=== PATIENT | male | born 1940 | race African-American/Black ===

== ENCOUNTER 2020-08-12 07:55 | Day surgery (SDC) | payer MEDICARE ==
[~2020-08-12] VITALS: Ht 172.7 cm; Wt 69.5 kg
[2020-08-12 09:00] VITALS: BP 117/77; PULSE 68; TEMP 97.7
[2020-08-12] MEDS ORDERED: LEVSIN 0.10.125 MG/T PO (09:07)
[2020-08-12] MEDS ORDERED: SILVADEN TOP (09:08)
[2020-08-12] MEDS ORDERED: ATIVAN 0.50.5 MG/TAB PO (09:08)
[2020-08-12] MEDS ORDERED: PHENERGAN 25 TA25 MG PO (09:09)
[2020-08-12] MEDS ORDERED: TRANSDERM-0.5 MG/21 TD (09:09)
[2020-08-12 09:30] VITALS: BP 128/77; PULSE 60; TEMP 97.4
[2020-08-12 09:45] VITALS: BP 139/74; PULSE 63
--- NOTE | 2020-08-12 09:45 | NUR ---
FAMILY REMAINS IN THE ROOM, PATIENT REMAINS RESTFUL
--- NOTE | 2020-08-12 09:51 | NUR ---
PATIENT RETURNED BY CART FROM ENDO PROCEDURE AND REMAINS ON THE CART. NON RESPONSIVE TO VERBAL STIMULUS. MONITORS ON AND ALARMS SET. CALL LIGHT WITHIN REACH, REPORT RECEIVED FROM CAROL PERALTA. FAMILY BROUGHT INTO HIS ROOM, PEG TUBE IN PLACE W/ PERFORATED 4X4 AT EXIT SITE, CLEAN AND DRY. DAUGHTER DARINEL IS POWER OF [employer] SUPERINTENDENT.
[2020-08-12 10:00] VITALS: BP 148/78; PULSE 60
--- NOTE | 2020-08-12 10:46 | NUR ---
1040 Discharge instructions given to pt's caregiver and daughter. All questions answered to their satisfaction. Handed to them are a thank you card and discharge instructions. 1046 Pt's caregiver transfers pt from cart to wheelchair. Pt transferred out of hospital via wheelchair and KATHRYN Merritt assist to private vehicle driven by family.
== END 2020-08-12 10:46 | disposition home or self-care (01) ==
LOC: SDCO 07:55
DX: K94.23 Gastrostomy malfunction (principal); G20 Parkinson's disease; I63.9 Cerebral infarction, unspecified; G91.9 Hydrocephalus, unspecified; G30.9 Alzheimer's disease, unspecified; F02.80 Dementia in other diseases classified elsewhere, unspecified severity, without behavioral disturbance, psychotic disturbance, mood disturbance, and anxiety; Z79.899 Other long term (current) drug therapy; Z87.891 Personal history of nicotine dependence
CPT/HCPCS: J2704